=== PATIENT | female | born 1990 | race American Indian/Alaskan Native ===

== ENCOUNTER 2020-01-31 00:11 | Emergency (ER) | payer BC ==
[2020-01-31 00:25] VITALS: BP 115/76
[2020-01-31] MEDS ORDERED: TETRACAINE 0.5% OPHTH SOLN 4ML OU STA (03:21)
--- NOTE | 2020-01-31 03:28 | Emergency Department Report ---
ED Eye Problem HPI - General Chief complaint: Eye Problems Stated complaint: LEFT EYE BLEED Time Seen by Provider: 01/31/20 02:38 Source: patient Mode of arrival: Ambulatory Limitations: No Limitations - History of Present Illness Initial comments: 29-year-old female was cleaning with bleach yesterday as got very irritated she was continuously rubbing her eye and then noticed some scant amount of painless bleeding begin to lose it has since that time spontaneously resolved. Reports no pain reports no fever, chills, sweats no blurred vision chief complaint: eye redness If Injury: none Severity: mild Consistency: constant Associated Symptoms: none Treatments Prior to Arrival: none - Related Data Previous Rx's Medication Instructions Recorded Last Taken Type Olopatadine HCl [Pataday 0.2%] 1 drop OS QDAY #1 bottle 01/31/20 Unknown Rx ED Review of Systems ROS: Stated complaint: LEFT EYE BLEED Other details as noted in HPI Comment: All other systems reviewed and negative ED Past Medical Hx - Past Medical History Previous Medical History?: No - Surgical History Past Surgical History?: Yes Additional Surgical History: Myomectomy - Social History Smoking Status: Never Smoker Substance Use Type: Alcohol - Medications Home Medications: Home Medications Medication Instructions Recorded Confirmed Last Taken Type Olopatadine HCl [Pataday 0.2%] 1 drop OS QDAY #1 bottle 01/31/20 Unknown Rx ED Physical Exam - General Limitations: No Limitations General appearance: alert, in no apparent distress - Head Head exam: Present: atraumatic, normocephalic - Eye Eye exam: Present: normal appearance - Expanded Eye Exam Expanded Eyelids: Laceration: Left (Small superficial trauma to the palpebral conjunctiva bleeding controlled), Erythema: Left Pupils: Regular, Round: Bilateral, Reactive: Bilateral Sclera/Conjunctival: Normal Inspection: Bilateral, Injection: Bilateral - ENT ENT exam: Present: mucous membranes moist - Neck Neck exam: Present: normal inspection - Respiratory Respiratory exam: Present: normal lung sounds bilaterally. Absent: respiratory distress - Cardiovascular Cardiovascular Exam: Present: regular rate, normal rhythm. Absent: systolic murmur, diastolic murmur, rubs, gallop - GI/Abdominal GI/Abdominal exam: Present: soft, normal bowel sounds - Extremities Exam Extremities exam: Present: normal inspection - Back Exam Back exam: Present: normal inspection - Neurological Exam Neurological exam: Present: alert, oriented X3 - Psychiatric Psychiatric exam: Present: normal affect, normal mood - Skin Skin exam: Present: warm, dry, intact, normal color. Absent: rash ED Course Vital Signs 01/31/20 00:24 Temperature 98.1 F Pulse Rate 85 Respiratory 18 Rate Blood Pressure 115/76 O2 Sat by Pulse 98 Oximetry Critical care attestation.: If time is entered above; I have spent that time in minutes in the direct care of this critically ill patient, excluding procedure time. ED Disposition Clinical Impression: Eye irritation Disposition: DC-01 TO HOME OR SELFCARE Is pt being admited?: No Does the pt Need Aspirin: No Condition: Stable Instructions: How to Use Eye Drops (ED), Eye Pain (ED) Prescriptions: Olopatadine HCl [Pataday 0.2%] 1 drop OS QDAY #1 bottle Referrals: PRIMARY CARE, [Primary Care Provider] - 3-5 Days
== END 2020-01-31 03:40 | disposition home or self-care (01) ==
LOC: ED 00:11
DX: H57.89 Other specified disorders of eye and adnexa (principal); Z90.89 Acquired absence of other organs; Z79.899 Other long term (current) drug therapy
CPT/HCPCS: 99282